=== PATIENT | male | born 1955 | race Caucasian/White ===

== ENCOUNTER 2017-10-21 10:20 | Observation (INO) ==
[2017-10-21] MEDS ORDERED: ASPIRIN 325 MG TABLET PO STA (12:32)
[2017-10-21] MEDS ORDERED: KETOROLAC 30 MG/1 ML VIAL IV STA (12:32)
[2017-10-21 12:50] LABS: Basophils % 0.5 % (0.0-0.8); Eosinophils % 0.2 % (0.00-10.9); Hematocrit 45.5 VOL% (42.0-52.0); Hemoglobin 15.9 GM/DL (14.0-18.0); Immature Granulocytes % 0.4 %; Immature Granulocytes Absolute 0.03 #; Lymphocytes # 1.2 10*3/uL (1.4-4.0); Lymphocytes % 14.7 % (21.2-54.2); Mean Corpuscular HGB Conc 34.9 GM/DL (32-36); Mean Corpuscular Hemoglobin 32 PG (27-34); Mean Corpuscular Volume 90.6 FL (87-102); Mean Platelet Volume 10.9 FL (9.6-12.0); Monocytes # 0.5 10*3/uL (0.11-0.8); Monocytes % 5.7 % (1.7-12.7); Neutrophils # 6.3 10*3/uL (1.4-7.4); Neutrophils % 78.5 % (38.7-73.9); Platelet Count 185 T/CUMM (130-400); Red Blood Count 5.02 MC/CUMM (3.8-5.5); Red Cell Distribution Width 13.5 % (9.3-17.3)
[2017-10-21 12:55] LABS: PT Patient Result 10.1 SECS
[2017-10-21] MEDS ORDERED: KETOROLAC 30 MG/1 ML VIAL ONE (13:07)
[2017-10-21] MEDS ORDERED: ASPIRIN 325 MG TABLET ONE (13:07)
[2017-10-21 13:11] LABS: Albumin 3.9 G/DL (3.4-5.0); Bilirubin,Total 0.6 MG/DL (0.2-1.0); Calcium 9.4 MG/DL (8.5-10.1); Osmolality,Calculated 287.4 MOS/KG (273-304); Potassium 4.9 MMOL/L (3.5-5.1); Total Protein 6.9 G/DL (6.4-8.3)
[2017-10-21] MEDS ORDERED: ENOXAPARIN 80 MG/0.8 ML SYRINGE SUBCUT STA (13:46)
[2017-10-21] MEDS ORDERED: NITROGLYCERIN 2% OINT 1 INCH/GM PACK TOP STA (13:46)
[2017-10-21] MEDS ORDERED: MORPHINE 2 MG/1 ML SYRINGE IV STA (13:49)
[2017-10-21] MEDS ORDERED: ONDANSETRON 4 MG/2 ML VIAL IV STA (13:49)
[2017-10-21] MEDS ORDERED: ONDANSETRON 4 MG/2 ML VIAL ONE (13:58)
[2017-10-21] MEDS ORDERED: MORPHINE 2 MG/1 ML SYRINGE ONE (13:58)
[2017-10-21] MEDS ORDERED: NITROGLYCERIN 2% OINT 1 INCH/GM PACK TOP ONE (13:58)
[2017-10-21] MEDS ORDERED: ENOXAPARIN 100 MG/ML SYRINGE SUBCUT ONE (13:58)
[2017-10-21] MEDS ORDERED: MAGNESIUM SULF RIDER 2 GM in PREMIX 1 EACH IV PRN ×2 (15:51→17:39)
[2017-10-21] MEDS ORDERED: MORPHINE 2 MG/1 ML SYRINGE IV PRN (15:51)
[2017-10-21] MEDS ORDERED: ONDANSETRON 4 MG/2 ML VIAL IV PRN (15:51)
[2017-10-21] MEDS ORDERED: INSULIN LISPRO 100 UNIT/ML SUBCUT ONE (15:51)
[2017-10-21] MEDS ORDERED: ACETAMINOPHEN 325 MG TABLET PO PRN (15:51)
[2017-10-21] MEDS ORDERED: POTASSIUM CHLORIDE 20 MEQ TABLET PO PRN (15:51)
[2017-10-21] MEDS ORDERED: GLUCAGON 1 MG VIAL IM PRN ×2 (16:07→17:10)
[2017-10-21] MEDS ORDERED: DEXTROSE 50% 25 GM/50 ML VIAL IV PRN ×2 (16:07→17:10)
[2017-10-21 16:31] LABS: Thyroid Stimulating Hormone 1.19 uIU/ml (0.358-3.74)
[2017-10-21] MEDS: INSULIN LISPRO 100 UNIT/ML SUBCUT SCH ×2 (16:54→23:12)
[2017-10-21] MEDS: PANTOPRAZOLE 40 MG TABLET PO SCH (16:54)
[2017-10-21] MEDS ORDERED: HEPARIN/NACL 0.9% 2 UNITS/ML 2,000 ML IV ONE (17:33)
[2017-10-21] MEDS ORDERED: LIDOCAINE 1% 20 ML VIAL ONE (17:34)
[2017-10-21] MEDS ORDERED: POTASSIUM CHLORIDE RIDER 10 MEQ in PREMIX 1 EACH IV PRN (17:39)
[2017-10-21] MEDS ORDERED: DIAZEPAM 5 MG TABLET ONE (17:45)
[2017-10-21] MEDS ORDERED: diphenhydrAMINE CAP 25 MG CAPSULE ONE (17:45)
[2017-10-21] MEDS ORDERED: MIDAZOLAM 2 MG/2 ML VIAL ONE ×3 (17:49→18:49)
[2017-10-21] MEDS ORDERED: fentaNYL 100 MCG/2 ML VIAL ONE ×2 (17:49→18:49)
[2017-10-21] MEDS ORDERED: DIAZEPAM 5 MG TABLET PO ONE (18:00)
[2017-10-21] MEDS ORDERED: diphenhydrAMINE CAP 25 MG CAPSULE PO ONE (18:00)
[2017-10-21] MEDS: SODIUM CHLORIDE 0.45% 1,000 ML IV SCH (18:01)
[2017-10-21] MEDS ORDERED: EPTIFIBATIDE 75 MG/100 ML BOTTLE IV ONE (18:19)
[2017-10-21] MEDS ORDERED: EPTIFIBATIDE 20,000 MCG/10 ML VIAL ONE (18:19)
[2017-10-21] MEDS ORDERED: TICAGRELOR 90 MG TABLET ONE (18:51)
[2017-10-21] MEDS ORDERED: NITROGLYCERIN SL 0.4 MG TABLET SL PRN (19:24)
[2017-10-21] MEDS ORDERED: ATORVASTATIN 40 MG TABLET PO SCH (21:00)
[2017-10-21] MEDS ORDERED: ZALEPLON 5 MG CAPSULE PO PRN (23:35)
[2017-10-22] MEDS: SODIUM CHLORIDE 0.45% 1,000 ML IV SCH (01:46)
[2017-10-22] MEDS ORDERED: ENOXAPARIN 100 MG/ML SYRINGE SUBCUT SCH (03:00)
[2017-10-22 05:44] LABS: Basophils # 0.1 10*3/uL (0.0-0.2); Basophils % 0.6 % (0.0-0.8); Eosinophils # 0.1 10*3/uL (0.0-0.87); Eosinophils % 0.7 % (0.00-10.9); Hematocrit 40.1 VOL% (42.0-52.0); Immature Granulocytes % 0.4 %; Immature Granulocytes Absolute 0.04 #; Lymphocytes # 1.4 10*3/uL (1.4-4.0); Lymphocytes % 16.1 % (21.2-54.2); Mean Corpuscular HGB Conc 34.9 GM/DL (32-36); Mean Corpuscular Hemoglobin 32 PG (27-34); Mean Corpuscular Volume 90.9 FL (87-102); Mean Platelet Volume 10.6 FL (9.6-12.0); Monocytes # 0.7 10*3/uL (0.11-0.8); Monocytes % 8.2 % (1.7-12.7); Neutrophils # 6.6 10*3/uL (1.4-7.4); Platelet Count 169 T/CUMM (130-400); Red Blood Count 4.41 MC/CUMM (3.8-5.5); Red Cell Distribution Width 13.7 % (9.3-17.3)
[2017-10-22 06:07] LABS: Calcium 8.8 MG/DL (8.5-10.1); Osmolality,Calculated 287.3 MOS/KG (273-304); VLDL CHOLESTEROL 54.2 MG/DL
[2017-10-22] MEDS ORDERED: INSULIN LISPRO 100 UNIT/ML SUBCUT PRN (07:07)
[2017-10-22] MEDS ORDERED: DEXTROSE 50% 25 GM/50 ML VIAL IV PRN (07:50)
[2017-10-22] MEDS ORDERED: GLUCAGON 1 MG VIAL IM PRN (07:50)
[2017-10-22] MEDS ORDERED: ALLOPURINOL 300 MG TABLET PO SCH (09:00)
[2017-10-22] MEDS ORDERED: EPA PO SCH (09:00)
[2017-10-22] MEDS ORDERED: Garlic [Garlic] 1,000 MG PO SCH (09:00)
[2017-10-22] MEDS ORDERED: ASPIRIN EC 81 MG TABLET PO SCH (09:00)
[2017-10-22] MEDS ORDERED: FISH OIL PO SCH (09:00)
[2017-10-22] MEDS ORDERED: OMEGA 3 ACID ETHYL ESTERS 1 GM CAPSULE PO SCH (09:00)
[2017-10-22] MEDS ORDERED: CHOLECALCIFEROL 5,000 UNIT TABLET PO SCH (09:00)
[2017-10-22] MEDS ORDERED: NEBIVOLOL 10 MG TABLET PO SCH (09:00)
[2017-10-22] MEDS ORDERED: TICAGRELOR 90 MG TABLET PO SCH (09:00)
[2017-10-22] MEDS ORDERED: GABAPENTIN 300 MG CAPSULE PO SCH (09:00)
[2017-10-22] MEDS ORDERED: ISOSORBIDE MONONITRATE 30 MG TABLET PO SCH (09:00)
[2017-10-22] MEDS ORDERED: VALSARTAN 160 MG TABLET PO SCH (09:00)
[2017-10-22] MEDS ORDERED: OMEGA PO SCH (09:00)
[2017-10-22] MEDS ORDERED: amLODIPine 10 MG TABLET PO SCH (09:00)
[2017-10-22] MEDS ORDERED: DHA PO SCH (09:00)
[2017-10-22] MEDS: PANTOPRAZOLE 40 MG TABLET PO SCH (09:18)
[2017-10-22] MEDS: INSULIN LISPRO 100 UNIT/ML SUBCUT SCH ×2 (09:21→12:42)
[2017-10-22 12:38] VITALS: BP 106/56
[2017-10-22] MEDS ORDERED: ENOXAPARIN 40 MG/0.4 ML SYRINGE SUBCUT SCH (13:30)
[2017-10-22] MEDS ORDERED: INSULIN GLARGINE 100 UNIT/ML SUBCUT SCH (21:00)
== END 2017-10-22 15:10 | disposition home or self-care (01) ==
LOC: N.EDINP 10:20 → N.ED 10:20 → N.TELEN 15:30
PROVIDERS: ADMIT Family Medicine; ATTEND Family Medicine
PROC: CLCCHCL (ICD-10-PCS; 2017-10-21 17:30)